=== PATIENT | male | born 1950 | race Two or more races ===

== ENCOUNTER 2016-12-20 06:00 | Inpatient (IN) ==
[2016-12-20] MEDS ORDERED: SODIUM PHOSPHATE ENEMA 133 ML BOTTLE RECTAL ONE ×2 (06:04→06:27)
[2016-12-20] MEDS ORDERED: cefTRIAXone 1,000 MG VIAL ONE (06:04)
[2016-12-20] MEDS ORDERED: SODIUM CHLORIDE 0.9% 100 ML IV ONE (06:04)
[2016-12-20] MEDS ORDERED: ALBUTEROL 2.5 MG/3 ML NEB RESP TX ONE ×2 (06:16→11:21)
[2016-12-20] MEDS ORDERED: IPRATROPIUM 500 MCG/2.5 ML NEB RESP TX ONE (06:16)
[2016-12-20] MEDS ORDERED: LORazepam 1 MG TABLET PO ONE (06:16)
[2016-12-20] MEDS ORDERED: FAMOTIDINE 20 MG TABLET PO ONE (06:16)
[2016-12-20] MEDS ORDERED: LORazepam 1 MG TABLET ONE (06:19)
[2016-12-20] MEDS ORDERED: FAMOTIDINE 20 MG TABLET ONE (06:19)
[2016-12-20] MEDS: LACTATED RINGERS 1,000 ML IV SCH (06:20)
[2016-12-20] MEDS ORDERED: GLYCOPYRROLATE 0.4 MG/2 ML VIAL ONE (07:12)
[2016-12-20] MEDS ORDERED: NEOSTIGMINE 10 MG/10 ML VIAL ONE (07:12)
[2016-12-20] MEDS ORDERED: ROCURONIUM 100 MG/10 ML VIAL IV ONE (07:12)
[2016-12-20] MEDS ORDERED: PROPOFOL 200 MG/20 ML VIAL IV ONE (07:12)
[2016-12-20] MEDS ORDERED: KETOROLAC 30 MG/1 ML VIAL ONE (07:12)
[2016-12-20] MEDS ORDERED: DEXAMETHASONE 4 MG/1 ML VIAL ONE (07:12)
[2016-12-20] MEDS ORDERED: ONDANSETRON 4 MG/2 ML VIAL ONE (07:12)
[2016-12-20] MEDS ORDERED: LIDOCAINE 2% 5 ML VIAL ONE (07:12)
[2016-12-20 08:04] LABS: Apearance,Urine Slightly Hazy (Clear); Bilirubin,Urine Negative (Negative); Blood, Urine Moderate mg/dL (Negative); Glucose,Urine (UA) Negative (Negative); Ketones,Urine Negative (Negative); Mucus,Urine Occasional /LPF (Occasional); Nitrite,Urine Negative (Negative); Protein,Urine Negative; RBC,Urine 37 /HPF (0-4); Urine Color Yellow (Yellow); Urine Specific Gravity 1.015 (1.001-1.035); Urine Urobilinogen < 2.0 EU/DL (0.2-1.0); WBC,Urine 3 /HPF (0-6)
[2016-12-20] MEDS ORDERED: METHYLENE BLUE 10 ML VIAL IV ONE (08:28)
[2016-12-20] MEDS ORDERED: ONDANSETRON 4 MG/2 ML VIAL IV PRN (10:56)
[2016-12-20] MEDS ORDERED: LACTULOSE 20 GM/30 ML UDCUP PO PRN (10:56)
--- NOTE | 2016-12-20 11:12 | Operative Note ---
Date of procedure: 12/20/16 Pre-op diagnosis: Prostate cancer Post-op diagnosis: same Procedure: 66-year-old male with known prostate cancer. He is like to undergo robotic prostatectomy. This procedure was explained at length and in detail. Risks, complications, outcomes, sequelae, prognosis and alternative therapy was thoroughly discussed. Patient understood this and agreed to proceed. Patient brought to the operative suite placed table in supine position on the securing pad. He is given a general endotracheal anesthetic which he tolerated well and then secured to the operating table in the usual fashion for robotic prostatectomy. He is then placed in low lithotomy with stirrups. Bray catheter was inserted and left to gravity drainage. Patient is then prepared and draped in usual sterile manner. After formal timeout. Incision created on both above the umbilicus. The abdominal wall tented up with towel clips and a Veress needle was used appears to the abdominal cavity. This was confirmed with the to click and saline drop test. Pneumoperitoneum was obtained. After about 3-1/2 L the Veress needle was removed. 8 mm trochars placed. Camera was inserted and the intra-abdominal contents are examined. There is some adhesions along the right colon and cecum down to the pelvis and the left colon is somewhat adherent on the left side.. 8 cm lateral to the camera port on both sides 2 other ports were placed. Fourth arm was placed lateral on the right side from the third arm. The robot was docked and then I broke scrub and went to the console. Using [place] bipolar forceps in the left and monopolar scissors in the right posterior approach was begun. With retraction of the bladder anteriorly the incision was created anteriorly cul-de-sac. Dissection was continued down the vessels deferens who were isolated and ligated with Weck clip and divided. Seminal vesicles were then dissected out of bed. Care was taken to use minimal cautery as this is nerve sparing. Window in Denonvilliers's fascia is then created. Attention was directed to creating the bladder flap. Just above the internal ring and medial to the remaining but lateral to the ligaments and incision is created. This was carried up anterior abdominal wall and the median umbilical ligaments were then ligated on both sides. The bladder flap was then dropped down. Dissection continued through the behind the pelvis. The endopelvic fascia was divided. There was a lot of attachments and some major vessels that had to be coagulated gently with bipolar superficial dorsal vein was coagulated and divided. After dissecting the attachments of the notch between the urethra prostate was identified. A #1 Vicryl was used to ligate the dorsal venous complex. There was a well-defined dorsal vein and one along the anterior portion of the bladder this is Weck clipped. Junction between the prostate and bladder were identified and then initially cautery was used to divide this and then dissection was continued sharply with scissors. Longitudinal fibers of the bladder neck were identified and the bladder neck was entered bladder was drained. Bray catheter was pulled back and the fourth arm was used to tent up the prostate. Bladder was then dissected off the prostate. Posterior bladder neck was identified incised dissection continued posteriorly to where the seminal vesicles and vas deferens were. Fourth arm was used to tent this up. Lateral pedicles were intermittently taken down and clipped and then divided. Lateral prostatic fascia on both sides was divided out. On the left side his cancer is more evident on the biopsy mid prostate 8 apex. With the dividing the fascia of the prostate felt like there was cancer close biopsy was sent for frozen section. He returned benign prostate but no cancer. With this in mind elected sacrificed left nerve. The right nerve was dissected out remaining posterior lateral pedicles were then isolated clipped and divided. Prostate was pulled up the plane between rectum and the prostate with about developed sharply and bluntly. Small vessels cauterized. The nerve was continued to be dissected off the lateral prostate all the way to the apex. With the light traction on the prostate dorsal vein was then divided dissection was continued sharply to the urethra. The right nerve was well away from the resecting area. Anterior urethra was divided the catheter was identified and the catheter was pulled back and the posterior urethra was then divided. Prostate attachments were then divided and the prostate with seminal vesicles were freed up placed in specimen bag. Bilateral node dissection was done. Adventitia the external iliac vein was entered ramin tissue was swept down the obturator fossa. The obturator nerve was identified kept in view at all times and not injured on both sides. A 2-0 Vicryl was used to approximate the posterior urethral plate to the posterior bladder neck. 3 oh noemi suture was then used to provide the urethrovesical anastomosis. This begun at 6 o'clock position outside in on both and then running up from the 5 to the 1:00 and 7:00 to 11 o'clock position. New 22 Salvadorean Bray was inserted and with tenting up of the sutures the catheter was irrigated and this was a watertight anastomosis. Anastomotic suture was tied securely. On the left-hand side where the nerve was where the cancer was it did want to do so I took a piece of Surgicel impacted and then left. Pneumoperitoneum was dropped and there was no significant bleeding. I re-scrubbed. The robot was undocked. The patient was laying flat. The 8 mm ports were removed. The 12 mm port was removed. The assistance port incision was not extended with a scalpel and cautery was used to divide the muscle and the fascia. Specimen bag was removed to contain the prostate and seminal vesicles. Cautery was used on this wound control hemostasis and this wound was closed with a 0 running Monocryl on the fascia. All wounds were then irrigated and drained hemostasis checked with cautery. There was a small hemangioma just below left hand port and this was then excised. The base of this was fulgurated. This was then closed with skin clips. The remaining wounds were closed with skin clips. Sterile dressings were placed on wound and the catheter was secured to the upper thigh. Patient was awakened general anesthesia having tolerated procedure well and was sent to the recovery room in stable condition. All sponge, needle and instrument counts correct 2. Implants: 22 Salvadorean Bray Anesthesia: SATHISH Surgeon / Physician: Aldair Harris Estimated blood loss: other (450cc) Specimens: other (Prostate with seminal vesicles, bilateral obturator nodes) Condition: stable Disposition: PACU Discharge Plan - Discharge Medications No Action Albuterol Sulfate [Ventolin HFA] 2 puff INH QID Minocycline [Minocin] 50 mg PO DAILY Budesonide/Formoterol 80-4.5 [Symbicort 80-4.5] 2 puff INH BID clonazePAM [Clonazepam] 2 mg PO DAILY Albuterol Sulfate [Albuterol Tab] 1 mg PO TID - Follow Up or Referral - Forms/Instructions
[2016-12-20] MEDS ORDERED: HYDROmorphone PCA 30 MG/30 ML SYRINGE IV ONE (11:18)
[2016-12-20] MEDS ORDERED: SUFentanil 50 MCG/ML AMP ONE (11:21)
[2016-12-20] MEDS ORDERED: SEVOFLURANE 1 UNIT/15 MINUTE INH ONE (11:21)
[2016-12-20] MEDS ORDERED: ALBUMIN 5% 12.5 GM/250 ML VIAL IV ONE (11:21)
[2016-12-20] MEDS ORDERED: ACETAMINOPHEN 1,000 MG/100 ML VIAL IV ONE (11:22)
[2016-12-20] MEDS ORDERED: LACTATED RINGERS 2,000 ML IV ONE (11:22)
[2016-12-20] MEDS: HYDROmorphone PCA 30 MG/30 ML SYRINGE IV SCH (11:23)
--- NOTE | 2016-12-20 11:58 | Anesthesia Post-Op ---
Anesthesia Post OP - Post Ansesthetic Evaluation Patient seen in post op: Yes Resp: within normal limits CV: within normal limits Mental: within normal limits Temp: within normal limits [id number]: within normal limits Nausea and Vomiting: within normal limits Pain: within normal limits
[2016-12-20] MEDS: DEXTROSE 5% NACL 0.45% 1,000 ML IV SCH (13:49)
[2016-12-20] MEDS: ALBUTEROL 2.5 MG/3 ML NEB RESP TX SCH ×2 (14:15→19:27)
[2016-12-20] MEDS: SOLIFENACIN 5 MG TABLET PO SCH (15:28)
[2016-12-20] MEDS: ALBUTEROL 2 MG TABLET PO SCH ×2 (15:28→20:50)
--- NOTE | 2016-12-20 17:19 | Urology Progress Note ---
Urology - PN: Subj Interval history: Status post robotic prostatectomy. Postoperative check. Patient is awake. He has incisional tenderness. Urine is clearing. Vital signs are stable. Patient is stable. Exam - Constitutional Vitals: Period Temp Pulse Resp BP Sys/Healy Pulse Ox Last 24 Hr 97.3 F-97.8 F 42-83 16-18 102-137/54-90 92-100
[2016-12-20] MEDS: ALVIMOPAN 12 MG CAPSULE PO SCH (20:50)
[2016-12-20] MEDS: clonazePAM 0.5 MG TABLET PO SCH (20:50)
[2016-12-20] MEDS: BUDESONIDE/FORMOTEROL 80-4.5 INHALER 6.9 GM INH SCH (20:52)
[2016-12-21] MEDS: DEXTROSE 5% NACL 0.45% 1,000 ML IV SCH ×2 (00:49→03:00)
[2016-12-21 06:24] LABS: Basophils % 0.1 % (0.0-0.8); Hematocrit 32.7 VOL% (42.0-52.0); Hemoglobin 11.3 GM/DL (14.0-18.0); Immature Granulocytes % 0.5 %; Immature Granulocytes Absolute 0.06 #; Lymphocytes # 1.2 10*3/uL (1.4-4.0); Lymphocytes % 9.1 % (21.2-54.2); Mean Corpuscular HGB Conc 34.6 GM/DL (32-36); Mean Corpuscular Hemoglobin 31 PG (27-34); Mean Corpuscular Volume 88.4 FL (87-102); Mean Platelet Volume 11.1 FL (9.6-12.0); Monocytes # 1.2 10*3/uL (0.11-0.8); Neutrophils # 10.4 10*3/uL (1.4-7.4); Neutrophils % 81.3 % (38.7-73.9); Platelet Count 172 T/CUMM (130-400); Red Cell Distribution Width 12.2 % (9.3-17.3); White Blood Count 12.7 T/CUMM (4-12)
[2016-12-21 06:57] LABS: Osmolality,Calculated 282.4 MOS/KG (273-304); Potassium 3.8 MMOL/L (3.5-5.1)
[2016-12-21] MEDS: ALBUTEROL 2.5 MG/3 ML NEB RESP TX SCH ×4 (07:39→18:40)
[2016-12-21] MEDS: ALVIMOPAN 12 MG CAPSULE PO SCH ×2 (08:18→21:31)
[2016-12-21] MEDS: SOLIFENACIN 5 MG TABLET PO SCH (08:18)
[2016-12-21] MEDS: LACTATED RINGERS 1,000 ML IV SCH (08:18)
[2016-12-21] MEDS: ALBUTEROL 2 MG TABLET PO SCH ×2 (08:18→21:31)
[2016-12-21] MEDS: BUDESONIDE/FORMOTEROL 80-4.5 INHALER 6.9 GM INH SCH ×2 (08:18→21:31)
[2016-12-21] MEDS ORDERED: MINOCYCLINE 50 MG PO SCH (09:00)
--- NOTE | 2016-12-21 09:16 | Pulmonology Progress Note ---
Pulmonary - PN: Subj Interval history: This is a 66-year-old male whom I cleared for surgery. He had a radical prostatectomy on 12/20/2016. In the past she has been followed by Dr. Landon Araya and by Héctor Downey nurse practitioner. In the past his main problems have been. 1. Bronchospastic disease. 2. Gastroesophageal reflux disease 3. A variant of sleep apnea which is followed by Dr. Thuy Cowan. Postop the patient is done very well he has no new complaints. He has not passed any gas rectally. He says his reflux is under good control. He is receiving inhalation therapy and his breathing has done fine. Lab. H&H 11.3/32.7 with normal indices. White count is 12,781 segs and 9 lymphs. Electrolytes are normal. Creatinine is 1.3 with a BUN of 17. Physical exam. Vital signs. See below Psychiatric. Oriented 3 not distended. I do not hear any bowel sounds. Lower extremities. No evidence of deep venous thrombophlebitis. Neurologic. Cranial nerves are intact. Long track motor functions intact. Face. Symmetrical. No swelling of the lips or tongue. Neck. Symmetrical. Full range of motion. No meningismus. Lymphatics. No submandibular cervical supraclavicular or epitrochlear adenopathy. Chest. Wheeze free. Heart. Regular. No gallop. Abdomen. Nondistended. I do not hear any bowel sounds. The remainder of the physical exam is negative. Plan. 1. I have not made any changes today 2. I agree with your orders. 3. Fall Exam (Progress Note) - Constitutional Vitals: Period Temp Pulse Resp BP Sys/Healy Pulse Ox Last 24 Hr 97.3 F-98.4 F 45-90 16-20 97-135/41-90 92-100 Results - Labs CBC & BMP: 12/21/16 05:43 12/21/16 05:43
[2016-12-21] MEDS: HYDROmorphone PCA 30 MG/30 ML SYRINGE IV SCH (10:48)
[2016-12-21] MEDS ORDERED: oxyCODONE/ACETAMINOPHEN 5-325 MG TABLET PO PRN ×2 (11:04→11:08)
[2016-12-21] MEDS ORDERED: MEPERIDINE 50 MG/1 ML VIAL IM PRN (11:05)
--- NOTE | 2016-12-21 11:07 | Urology Progress Note ---
Urology - PN: Subj Interval history: Patient's had a stable night. Blood work looks good creatinine is normal. Urine is clearing. Has incisional tenderness but abdomen is soft and flat. We will stop his [employer] and IV fluids. Oral medicines. He will ambulate twice a day. Exam - Constitutional Vitals: Period Temp Pulse Resp BP Sys/Healy Pulse Ox Last 24 Hr 97.3 F-98.4 F 45-90 16-20 97-135/41-90 92-100 Results - Labs CBC & BMP: 12/21/16 05:43 12/21/16 05:43
[2016-12-21] MEDS ORDERED: ALUMINUM/MAGNES/SIMETH MAX STR 30 ML UDCUP PO PRN (21:30)
[2016-12-21] MEDS: clonazePAM 0.5 MG TABLET PO SCH (21:31)
[2016-12-22] MEDS: ALBUTEROL 2.5 MG/3 ML NEB RESP TX SCH ×3 (07:25→14:36)
[2016-12-22] MEDS: ALBUTEROL 2 MG TABLET PO SCH (09:01)
[2016-12-22] MEDS: SOLIFENACIN 5 MG TABLET PO SCH (09:01)
[2016-12-22] MEDS: BUDESONIDE/FORMOTEROL 80-4.5 INHALER 6.9 GM INH SCH (09:01)
[2016-12-22] MEDS: ALVIMOPAN 12 MG CAPSULE PO SCH (09:01)
--- NOTE | 2016-12-22 09:41 | Pulmonology Progress Note ---
Pulmonary - PN: Subj Interval history: This is a 66-year-old male whom I cleared for surgery. He had a radical prostatectomy on 12/20/2016. In the past she has been followed by Dr. Landon Araya and by Héctor Downey nurse practitioner. In the past his main problems have been. 1. Bronchospastic disease. 2. Gastroesophageal reflux disease 3. A variant of sleep apnea which is followed by Dr. Thuy Cowan. Postop the patient is done very well he has no new complaints. He has not passed any gas rectally. He says his reflux is under good control. He is receiving inhalation therapy and his breathing has done fine. Lab. H&H 11.3/32.7 with normal indices. White count is 12,781 segs and 9 lymphs. Electrolytes are normal. Creatinine is 1.3 with a BUN of 17. 12/22/2016. The patient has flatus. He complains of some abdominal wall muscular soreness. Is mainly bothersome when he tries to sit up. He is been able to eat a little. There has been no problem with his reflux. His bronchospastic disease is remainder the good control. There is no lab available so far today. Patient has been up and walking twice a day. He has no new requests. Overall the patient is making a very good recovery after radical prostatectomy. Physical exam. Vital signs. See below Psychiatric. Oriented 3 not distended. I do not hear any bowel sounds. Lower extremities. No evidence of deep venous thrombophlebitis. Neurologic. Cranial nerves are intact. Long track motor functions intact. Face. Symmetrical. No swelling of the lips or tongue. Neck. Symmetrical. Full range of motion. No meningismus. Lymphatics. No submandibular cervical supraclavicular or epitrochlear adenopathy. Chest. Wheeze free. Heart. Regular. No gallop. Abdomen. Nondistended. I do not hear any bowel sounds but the patient says he has had flatus. The remainder of the physical exam is negative. Plan. 12/20/2016 1. I have not made any changes today 2. I agree with your orders. 12/22/2016. 1. Has flatus. 2. Abdominal wall soreness 3. See today's note above. Patient is doing very well Exam (Progress Note) - Constitutional Vitals: Period Temp Pulse Resp BP Sys/Healy Pulse Ox Last 24 Hr 97.9 F-98.4 F 53-78 16-20 100-133/51-60 94-99 Results - Labs CBC & BMP: 12/21/16 05:43 12/21/16 05:43
[2016-12-22 12:18] VITALS: BP 155/72
--- NOTE | 2016-12-22 14:39 | Discharge Summary ---
Hospital Course - Hospital Course Hospital Course: 66-year-old male status post robotic prostatectomy. He is done very well. Path is pending. His blood work is remained stable creatinine is normal. H&H is dropped a little bit but he is doing fine. Urine is clear. He is tolerating regular diet had a normal bowel movement. His path report however is pending. We will discharge him. We will keep him on his Percocet and his Vesicare. We will discharge him to see the nurse in 1 week for catheter removal and see me in 2 weeks. Diagnosis - Discharge Diagnosis (1) Prostate cancer Status: Acute Specialty Discharge - Follow Up or Referrals Follow up with: Aldair Harris MD [Physician] - 01/08/17 1:30 pm (Appt with Dr Harris nurse for gr removal on 12-29-16 at 9:45am. Bring a diaper.) Discharge Plan - Discharge Data Disposition: Disch To Home/Self Care Condition at Discharge: Stable Discharge Diet: regular diet Activity: no lifting, other (No lifting, straining, driving or riding) Hygiene: no restrictions Weight Bearing at Discharge: full weight bearing Driving: not until seen by doctor Contact your physician if you experience:: fever over 101, Nausea/Vomiting, Bleeding, pain uncontrolled by pain medications - Discharge Medications New oxyCODONE/ACETAMINOPHEN 5-325 [Percocet 5-325] 2 tablet PO Q4H PRN tablet PRN Reason: Pain Moderate (4-7) oxyCODONE/ACETAMINOPHEN 5-325 [Percocet 5-325] 1 tablet PO Q4H PRN tablet PRN Reason: Pain Moderate (4-7) Solifenacin [Vesicare] 5 mg PO DAILY tablet Continue Albuterol Sulfate [Ventolin HFA] 2 puff INH QID Minocycline [Minocin] 50 mg PO DAILY Budesonide/Formoterol 80-4.5 [Symbicort 80-4.5] 2 puff INH BID clonazePAM [Clonazepam] 2 mg PO DAILY Albuterol Sulfate [Albuterol Tab] 1 mg PO BID - Follow Up or Referral Follow Up: Aldair Harris MD [Physician] - 01/08/17 1:30 pm (Appt with Dr Harris nurse for gr removal on 12-29-16 at 9:45am. Bring a diaper.) - Forms/Instructions Instructions: Robot Assisted Laparoscopic Prostatectomy (DC) Exam - Constitutional Vitals: Period Temp Pulse Resp BP Sys/Healy Pulse Ox Last 24 Hr 97.7 F-98.4 F 52-78 16-20 100-155/53-72 94-99 DS: Provider Date of admission: 12/20/16 10:56 Attending physician on admission: Aldair Harris MD Consults: 12/20/16 11:00 Consult to Physician [CONS] Routine Comment: Known to you, status post prostatectomy Consulting Provider: Clayton Chavez Consult to Specialist Group: Urology When should Consulting Provider be notified: Now Person Notified: Emilia Date Notified: 12/20/16 Time Notified: 13:30 Discharging clinician: Aldair Harris MD
--- NOTE | 2016-12-22 17:16 | Pathology Report from [facility] ---
[facility] [place] ACCESSION # : [id number] PATIENT NAME : Clayton Samson ORDERING DR : DAWSON GUERRA MD CLINICAL HX: Prostate CA POST-OP DX: Same SPECIMEN INFO: #1 LT lateral margin #2 Right obturator lymph node #3 Left obturator lymph node #4 Prostate #5 Hemangioma GROSS DESCRIPTION: #1 Received fresh for frozen section labeled CLAYTON SAMSON & # 1 is a 0.5 x 0.5 cm red narvaez tissue submitted in cassette #1 for frozen section.# 2 Received in formalin labeled with the patients name CLAYTON SAMSON & #2 R OBT NODE consists of a fragment of adipose tissue measuring 6.5 x 2.2 cm. Sectioning reveals a yellow-narvaez lymph node measuring 2.8 x 0.7 cm. Sectioned and submitted in cassette #2.#3 Received in formalin labeled with the patients name CLAYTON SAMSON and #3 L OBT NODE consists of an aggregate of fatty tissue measuring 3.2 x 3.2 cm. Sectioning reveals a yellow-narvaez lymph node measuring 2.7 x 0.7 cm. Sectioned and submitted entirely in cassette #3.#4 Received in formalin labeled with the patients name CLAYTON SAMSON & #4 PROSTATE consists of a 44 gram prostate gland which measures 5.0 x 4.0 x 3.6 cm. The serosa is shaggy and red-narvaez. The right half is inked black and the left half is inked blue. There is also an attached fragment of tissue at the left apical margin measuring 1.1 x 0.5 x 3.0 cm. Cut surfaces are pink-narvaez and somewhat nodular. Sections submitted: 4A apical margin, 4B base margin, 4C seminal vesicle margin , 4D thru 4H right apex to base, 4I thru 4M left apex to base.#5 Received in formalin labeled with the patients name CLAYTON SAMSON & #5 consists of a 0.6 x 0.6 x 0.3 cm blue-pittman lesion. Bisected and submitted in cassette #5. DIAGNOSIS FOR CLAYTON SAMSON: #1 #2 #3 #4 PROSTATE, RADICAL PROSTATECTOMY (5.0 x 4.0 x 3.6 cm, 44 gm): TYPE: Prostatic adenocarcinoma, bilateral. GRADE: Primary Pattern Grade 4; Secondary Pattern Grade 3; Total Arp Score 7. SAMANTHA GRADE GROUP: 3(4+3=7). PERCENTAGE OF PATTERN 4 in SAMANTHA SCORE 3+4=7 CANCER: (60%) TUMOR QUANTITATION: Percentage of prostate involved by tumor 10% ; Dominant nodule = 7 mm. MARGINS: Margins uninvolved by invasive carcinoma. EXTRAPROSTATIC EXTENSION: Not Identified. SEMINAL VESICLE INVASION: Not identified. URINARY BLADDER NECK INVASION: Not identified. TREATMENT EFFECT: Not identified. LYMPH-VASCULAR INVASION: Not identified. PERINEURAL INVASION: Present. LYMPH NODES: Pelvic lymph node dissection (12 nodes, all negative for malignancy). AJCC PATHOLOGIC STAGE IIB ([id number]).#5 LESION: Capillary hemangioma. COLLECTED DATE: 12/20/2016 [facility] REPORT DATE: 12/22/2016 ELECTRONICALLY SIGNED BY: Soraya Ibarra M.D. 12/22/2016 - 12:20:30 [facility]
== END 2016-12-22 15:38 | disposition home or self-care (01) | DRG 708 ==
LOC: N.OR 06:00 → N.SDSINP 06:02 → N.5E 09:00
PROVIDERS: ADMIT Urology; ATTEND Urology